=== PATIENT | female | born 1980 | race Caucasian/White ===

== ENCOUNTER 2020-04-03 07:57 | Outpatient (CLI) | payer BC, OTHER, SELFPAY ==
--- NOTE | 2020-04-03 08:02 | US_ITS ---
WS: [id number] ULTRASOUND THYROID TECHNIQUE: Ultrasound of the thyroid. CLINICAL INFORMATION: THYROMEGALY COMPARISON: None. FINDINGS: Thyroid: Right and left thyroid lobes are normal in size with diffuse heterogeneous echotexture. No d ominant thyroid nodules are present. Right thyroid lobe: 4.3 cm x 1.5 cm x 1.5 cm Left thyroid lobe: 4.2 cm x 1.5 cm x 1.3 cm. Isthmus: 0.6 mm. Cervical lymphadenopathy: None. US/US thyroid [id number] IMPRESSION: 1. Thyroid gland is normal in size. 2. No significant nodules. 3. Heterogeneous thyroid echotexture can be seen with goiter or thyroiditis. R ecommend correlation with thyroid function studies.
== END 2020-04-03 07:58 | disposition home or self-care (01) ==
PROVIDERS: PCP Nurse Practitioner; Visit Provider Family Medicine
DX: E01.0 Iodine-deficiency related diffuse (endemic) goiter (principal)
CPT/HCPCS: 76536

== ENCOUNTER 2020-05-09 15:22 | Outpatient (CLI) | payer BC, OTHER, SELFPAY ==
--- NOTE | 2020-05-09 15:28 | MM_ITS ---
WS: [id number] SCREENING DIGITAL MAMMOGRAM WITH CAD HISTORY: SCREENING COMPARISON: 12/25/2013 and 05/24/2013 LEFT mammogram. Bilateral CC and MLO views submitted. Computer aided detection analyzed. Breast composition: There are scattered areas of fibroglandular density. Well-circumscribed mass LEFT breast at 3:00 at a middle depth measures 14 mm. This mass has decreased in size since the prior renee dy. There is an additional 7 mm nodule at a middle depth near 6:00 which is also slightly decreased. There is a 6 mm nodule 6:00 axis of the RIGHT breast which has not been imaged in the past. RIGHT breast: Spot compression views (CC and MLO). True ML. Ultrasound to follow if abnormality persi sts. MM/[place] [id number] IMPRESSION: BI-RADS: 0-Incomplete: Need additional imaging evaluation FOLLOW UP: Need Additional Imaging
== END 2020-05-09 15:23 | disposition home or self-care (01) ==
LOC: RADSHAW 15:27
PROVIDERS: PCP Nurse Practitioner; Visit Provider Family Medicine
DX: Z12.31 Encounter for screening mammogram for malignant neoplasm of breast (principal)
CPT/HCPCS: 77067

== ENCOUNTER 2020-05-13 11:34 | Outpatient (CLI) | payer BC, OTHER, SELFPAY ==
--- NOTE | 2020-05-13 11:40 | US_ITS ---
WS: [id number] RIGHT DIGITAL MAMMOGRAPHY WITH CAD CLINICAL INFORMATION: RT BREAST NODULE COMPARISON: May 09, 2020 TECHNIQUE: 3 views of the right breast were obtained. FINDINGS: Scattered fibroglandular densities of the right breast. Stable 6 mm nodule right breast 6:00 position . Ultrasound is pending. ULTRASOUND BREAST RIGHT TECHNIQUE: Ultrasound right breast focused area of concern. CLINICAL INFORMATION: RT BREAST NODULE COMPARISON: None. FINDINGS: Ultrasound breast right-6 clock and 12:00 position. A few tiny cysts are visualized at the 6 clock po sition measuring 2-3 mm. At the 12:00 position is a larger simple appearing cyst measuring 9.4 x 6.5 mm. Findings are benign. US/US breast RT limited* [id number] IMPRESSION: BI-RADS: 2-Benign FOLLOW UP: 1 Year Follow-up Recommend return to annual screening mammography.
== END 2020-05-13 11:35 | disposition home or self-care (01) ==
LOC: RADSHAW 11:37
PROVIDERS: PCP Family Medicine; Visit Provider Family Medicine
DX: N63.10 Unspecified lump in the right breast, unspecified quadrant (principal)
CPT/HCPCS: 76642; 77065

== ENCOUNTER 2021-04-22 11:04 | Outpatient (CLI) | payer OTHER, SELFPAY ==
--- NOTE | 2021-04-22 11:10 | XR_ITS ---
WS: [id number] Left shoulder, 3 views, 04/22/2021 Clinical Data: PAIN IN LEFT SHOULDER Comparison: None. Findings: No fractures or dislocations are seen. The AC joint is normal. The adjacent left clavicle, left scapu la and ribs are normal. The soft tissues are unremarkable. XR/XR shoulder LT min 2V* [id number] Impression: Negative left shoulder.
== END 2021-04-22 11:05 | disposition home or self-care (01) ==
PROVIDERS: PCP Family Medicine; Visit Provider Nurse Practitioner Family
DX: M25.512 Pain in left shoulder (principal); M75.42 Impingement syndrome of left shoulder
CPT/HCPCS: 73030

== ENCOUNTER 2021-08-19 09:06 | Outpatient (CLI) | payer OTHER, SELFPAY ==
--- NOTE | 2021-08-19 09:13 | MM_ITS ---
WS: [id number] BILATERAL SCREENING DIGITAL MAMMOGRAM WITH CAD HISTORY: SCREENING COMPARISON: 05/13/2020, 05/09/2020, 05/24/2013 Bilateral CC and MLO views submitted. Computer aided detection analyzed. Breast composition: There are scattered areas of fibroglandular density. No suspicious masses, microc alcifications or architectural distortion. Gently lobulated 15 mm mass in the LEFT breast near 2:00 h as been stable over multiple prior examinations. There is an additional nodule central to the LEFT ni pple. Both of these nodules demonstrate long-term stability. MM/[place] [id number] IMPRESSION: BI-RADS: 2-Benign FOLLOW UP: 1 Year Follow-up
== END 2021-08-19 09:07 | disposition home or self-care (01) ==
PROVIDERS: PCP Family Medicine; Visit Provider Family Medicine
DX: Z12.31 Encounter for screening mammogram for malignant neoplasm of breast (principal)
CPT/HCPCS: 77067

== ENCOUNTER 2021-09-10 16:22 | Outpatient (CLI) | payer OTHER, SELFPAY ==
--- NOTE | 2021-09-10 16:33 | MR_ITS ---
WS: [id number] MRI LEFT SHOULDER HISTORY: PAIN IN LEFT SHOULDER COMPARISON: Radiographs 04/22/2021 TECHNIQUE: Multiplanar sequences of the shoulder joint are submitted. Normal AC joint. No marrow edema or significant osteophytosis. Very minimal downsloping of the acromi on and subacromial narrowing. No significant subacromial or subdeltoid bursal fluid. No os acromion. Biceps tendon is in normal position. Very mild narrowing of the glenohumeral joint. Small subchondral cystic change along the posterior la teral humeral head. No muscle atrophy or edema. No rotator cuff tears or significant tendinopathy. Th ere is very minimal increased signal within the anterior supraspinatus tendon. No joint effusion. No labral tear is identified. There is a small amount of increased T2 signal in the superior labrum but cannot confirm tear. MR/MR shoulder LT wo con* [id number] IMPRESSION: 1. Mild fraying of the distal supraspinatus tendon but no tear. 2. Normal AC joint. 3. Mild intrasubstance degeneration in the superior labrum but no tear.
== END 2021-09-10 16:23 | disposition home or self-care (01) ==
LOC: RADSHAW 16:26
PROVIDERS: PCP Family Medicine; Visit Provider Nurse Practitioner Family
DX: M25.512 Pain in left shoulder (principal)
CPT/HCPCS: 73221

== ENCOUNTER → 2021-12-11 11:50 | Outpatient (BNVA) | payer OTHER, SELFPAY | PROVIDERS: PCP Family Medicine; Referring Provider Family Medicine; Visit Provider Internal Medicine | DX: E03.9 Hypothyroidism, unspecified (principal); Z13.1 Encounter for screening for diabetes mellitus; Z13.220 Encounter for screening for lipoid disorders | CPT/HCPCS: 80061; 83036; 86376; 86800 ==

== ENCOUNTER 2022-02-09 11:56 | Outpatient (CLI) | payer OTHER, SELFPAY ==
[2022-02-09 13:15] LABS: Free T4 Free Thyroxine 1.35 ng/dL (0.82-1.77); Thyroid Stimulating Hormone 1.86 uIU/mL (0.27-4.20)
== END 2022-02-09 11:57 | disposition home or self-care (01) ==
LOC: LAB 11:58
PROVIDERS: PCP Family Medicine; Visit Provider Internal Medicine
DX: E03.9 Hypothyroidism, unspecified (principal); Z13.1 Encounter for screening for diabetes mellitus; Z13.220 Encounter for screening for lipoid disorders
CPT/HCPCS: 84439; 84443

== ENCOUNTER 2022-05-06 08:45 | Outpatient (CLI) | payer OTHER, SELFPAY ==
[2022-05-06 09:45] LABS: Free T4 Free Thyroxine 1.39 ng/dL (0.82-1.77); Thyroid Stimulating Hormone 2.16 uIU/mL (0.27-4.20)
== END 2022-05-06 08:46 | disposition home or self-care (01) ==
LOC: LAB 08:48
PROVIDERS: PCP Family Medicine; Visit Provider Internal Medicine
DX: E03.9 Hypothyroidism, unspecified (principal)
CPT/HCPCS: 36415; 84439; 84443

== ENCOUNTER 2022-08-12 08:17 | Outpatient (CLI) | payer OTHER, SELFPAY ==
[2022-08-12 09:25] LABS: Free T4 Free Thyroxine 1.34 ng/dL (0.82-1.77); Thyroid Stimulating Hormone 0.71 uIU/mL (0.27-4.20)
== END 2022-08-12 08:18 | disposition home or self-care (01) ==
LOC: LAB 08:24
PROVIDERS: PCP Family Medicine; Visit Provider Internal Medicine
DX: E03.9 Hypothyroidism, unspecified (principal)
CPT/HCPCS: 36415; 84439; 84443

== ENCOUNTER 2022-09-07 08:49 | Outpatient (CLI) | payer OTHER, SELFPAY ==
--- NOTE | 2022-09-07 08:59 | MM_ITS ---
WS: [id number] BILATERAL SCREENING DIGITAL TOMOSYNTHESIS MAMMOGRAM WITH CAD HISTORY: SCREENING COMPARISON: 08/19/2021, 05/09/2020 Bilateral CC and MLO views with tomosynthesis and synthetic mammography submitted. Computer aided det ection analyzed. Breast composition: There are scattered areas of fibroglandular density. No suspicious masses, microc alcifications or architectural distortion. 2 stable masses in the LEFT breast. The largest near 2-3 o 'clock at a middle depth measures 14 x 10 mm. There is a smaller nodule measuring 0.5 cm central to t he nipple, 6:00. MM/[place] [id number] IMPRESSION: BI-RADS: 2-Benign FOLLOW UP: 1 Year Follow-up
== END 2022-09-07 08:50 | disposition home or self-care (01) ==
PROVIDERS: PCP Family Medicine; Visit Provider Nurse Practitioner Family
DX: Z12.31 Encounter for screening mammogram for malignant neoplasm of breast (principal)
CPT/HCPCS: 77063; 77067

== ENCOUNTER 2022-09-07 08:50 | Outpatient (CLI) | payer OTHER, SELFPAY ==
--- NOTE | 2022-09-07 09:15 | US_ITS ---
WS: [id number] THYROID ULTRASOUND HISTORY: Dysphagia COMPARISON: 04/03/2020 Right lobe: 1.1 cm x 1.2 cm x 4.1 cm (w x ap x l). Volume: 2.7 cm3. Normal size gland with mild coarsened echotexture throughout. There is no mass or nodule. No increase d vascularity. Left lobe: 1.2 cm x 1.3 cm x 3.3 cm (w x ap x l). Volume: 2.8 cm3. Normal size gland with mild heterogeneity. No increased vascularity or mass. Isthmus: 0.3 cm. Small bilateral cervical chain lymph nodes. US/US thyroid [id number] IMPRESSION: 1. Normal size thyroid with no nodule or mass. 2. Mild heterogeneity is probably due to prior episodes of thyroiditis with he aling.
== END 2022-09-07 08:51 | disposition home or self-care (01) ==
PROVIDERS: PCP Family Medicine; Visit Provider Internal Medicine
DX: R13.10 Dysphagia, unspecified (principal)
CPT/HCPCS: 76536

== ENCOUNTER 2022-12-08 14:53 | Outpatient (CLI) | payer OTHER, SELFPAY ==
[2022-12-08 15:43] LABS: Free T4 Free Thyroxine 1.21 ng/dL (0.82-1.77); Thyroid Stimulating Hormone 1.02 uIU/mL (0.27-4.20)
== END 2022-12-08 14:54 | disposition home or self-care (01) ==
LOC: LAB 14:58
PROVIDERS: PCP Family Medicine; Visit Provider Internal Medicine
DX: E03.9 Hypothyroidism, unspecified (principal)
CPT/HCPCS: 84439; 84443

== ENCOUNTER 2023-03-17 10:51 | Outpatient (CLI) | payer OTHER, SELFPAY ==
[2023-03-17 12:03] LABS: Free T4 Free Thyroxine 1.42 ng/dL (0.82-1.77); Thyroid Stimulating Hormone 1.07 uIU/mL (0.27-4.20)
== END 2023-03-17 10:52 | disposition home or self-care (01) ==
LOC: LAB 10:52
PROVIDERS: PCP Family Medicine; Visit Provider Internal Medicine
DX: R68.89 Other general symptoms and signs (principal); E03.9 Hypothyroidism, unspecified; E66.3 Overweight; E78.5 Hyperlipidemia, unspecified; G47.00 Insomnia, unspecified
CPT/HCPCS: 36415; 84439; 84443

== ENCOUNTER 2023-08-21 09:38 | Outpatient (CLI) | payer OTHER, SELFPAY ==
[2023-08-21 09:52] LABS: Basophils # 0.1 10^3/uL (0.0-0.1); Basophils % 0.7 %; Eosinophils # 0.2 10^3/uL (0.0-0.8); Eosinophils % 2.2 %; Hematocrit 43.1 % (36-47); Lymphocytes # 2.6 10^3/uL (0.8-4.8); Lymphocytes % 35.9 %; Mean Corpuscular HGB Conc 32.9 g/dL (30-55); Mean Corpuscular Hemoglobin 29.1 pg (27-33); Mean Corpuscular Volume 88.3 fl (85-98); Mean Platelet Volume 9.5 fL (7.4-10.4); Monocytes # 0.6 10^3/uL (0.2-0.9); Monocytes % 8.5 %; Neutrophils # 3.84 10^3/uL (1.8-7.7); Neutrophils % 52.6 %; Nucleated Red Blood Cells % 0 %; Platelet Count 267 10^3/cmm (157-399); Red Blood Count 4.88 10^6/uL (3.85-5.65); Red Cell Distribution Width 13.1 % (12.1-15.1)
[2023-08-21 10:12] LABS: Estmated Average Glucose 97
[2023-08-21 10:13] LABS: Creatinine Urine, Random 186 mg/dL (28-217); Microalbum Creatinine Ratio Ur 5 mg/dL (0-20); Microalbumin Random Urine 1 ug/dL (0-20)
[2023-08-21 10:31] LABS: 25 Hydroxy Vitamin D 29 ng/mL (30-100); Alanine Aminotransferase 16 U/L (0-33); Albumin Level 4.1 g/dL (3.5-5.2); Alkaline Phosphatase 59 U/L (35-105); Anion Gap 13.9 (5-19); Aspartate Amino Transferase 14 U/L (0-32); Blood Urea Nitrogen 19 mg/dL (6-20); Calcium 8.9 mg/dL (8.5-10.5); Carbon Dioxide 20 mmol/L (22-29); Chloride 111 mmol/L (98-107); Chol HDL Ratio 3.57 mg/dL (0.0-4.40); Cholesterol 239 mg/dL (0-200); Globulin 3.2 g/dL (1.3-4.6); Glucose 89 mg/dL (65-115); HDL Cholesterol 67 mg/dL (60-100); Iron 77 ug/dL (37-145); LDL Cholesterol Calculated 158 mg/dL (50-129); LDL HDL Ratio 2.36 RATIO (0.00-3.22); Osmolality Calculated 294 mOsm/kg (285-295); Potassium 3.9 mmol/L (3.5-5.1); Sodium 141 mmol/L (136-145); Thyroid Stimulating Hormone 0.94 uIU/mL (0.27-4.20); Total Bilirubin 0.5 mg/dL (0.15-1.2); Total Protein 7.3 g/dL (6.6-8.7); Triglycerides 70 mg/dL (0-150); Vitamin B12 381 pg/mL (232-1245)
[2023-08-21 10:59] LABS: Free T4 Free Thyroxine 1.17 ng/dL (0.82-1.77)
== END 2023-08-21 09:39 | disposition home or self-care (01) ==
PROVIDERS: PCP Family Medicine; Visit Provider Internal Medicine
DX: E03.9 Hypothyroidism, unspecified (principal); E78.5 Hyperlipidemia, unspecified; L65.9 Nonscarring hair loss, unspecified; Z13.220 Encounter for screening for lipoid disorders; Z13.1 Encounter for screening for diabetes mellitus
CPT/HCPCS: 80053; 80061; 82044; 82306; 82607; 83036; 83540; 84439; 84443; 85025

== ENCOUNTER → 2023-08-30 13:16 | Outpatient (BNVA) | payer OTHER, SELFPAY | PROVIDERS: PCP Family Medicine; Visit Provider Podiatrist Foot & Ankle Surgery | DX: M20.12 Hallux valgus (acquired), left foot; M20.11 Hallux valgus (acquired), right foot; M21.6X1 Other acquired deformities of right foot; M21.6X2 Other acquired deformities of left foot | CPT/HCPCS: 73630 ==

== ENCOUNTER 2024-04-07 11:05 | Outpatient (CLI) | payer OTHER, SELFPAY ==
[2024-04-07 11:54] LABS: Anion Gap 9.1 (5-19); Blood Urea Nitrogen 12 mg/dL (6-20); Carbon Dioxide 30 mmol/L (22-29); Chloride 101 mmol/L (98-107); Glomerular Filtration Rate 90.9 mL/min (90-130); Glucose 81 mg/dL (65-115); Osmolality Calculated 281 mOsm/kg (285-295); Potassium 4.1 mmol/L (3.5-5.1); Sodium 136 mmol/L (136-145)
[2024-04-07 12:00] LABS: Free T4 Free Thyroxine 1.14 ng/dL (0.82-1.77); Thyroid Stimulating Hormone 2.66 uIU/mL (0.27-4.20)
[2024-04-07 12:10] LABS: 25 Hydroxy Vitamin D 42 ng/mL (30-100)
== END 2024-04-07 11:06 | disposition home or self-care (01) ==
LOC: LAB 11:06
PROVIDERS: PCP Family Medicine; Visit Provider Internal Medicine
DX: E03.9 Hypothyroidism, unspecified (principal); E78.5 Hyperlipidemia, unspecified; N17.9 Acute kidney failure, unspecified
CPT/HCPCS: 80048; 82306; 84439; 84443

== ENCOUNTER 2024-08-07 08:27 | Outpatient (CLI) | payer OTHER, SELFPAY ==
[2024-08-07 09:08] LABS: Free T4 Free Thyroxine 1.18 ng/dL (0.82-1.77); Thyroid Stimulating Hormone 1.36 uIU/mL (0.27-4.20)
== END 2024-08-07 08:28 | disposition home or self-care (01) ==
LOC: LAB 08:29
PROVIDERS: PCP Family Medicine; Visit Provider Internal Medicine
DX: E03.9 Hypothyroidism, unspecified (principal)
CPT/HCPCS: 36415; 84439; 84443

== ENCOUNTER 2025-02-05 08:44 | Outpatient (CLI) | payer OTHER, SELFPAY ==
--- NOTE | 2025-02-05 08:56 | XRR_ITS ---
PROCEDURE INFORMATION: Exam: XR Cervical Spine Exam date and time: 02/05/2025 9:01 AM Age: 44 years old Clinical indication: Pain; Cervicalgia; Additional info: Cervicalgia/pain in L shoulder TECHNIQUE: Imaging protocol: Radiologic exam of the cervical spine. Views: 2 or 3 views. COMPARISON: MR shoulder LT wo con* [id number] 09/10/2021 4:41 PM FINDINGS: Bones/joints: Normal. No acute fracture. Normal alignment. Soft tissues: Unremarkable. XR/XR cervical spine 3V* [id number] IMPRESSION: No acute findings.
[2025-02-05 11:30] LABS: Free T4 Free Thyroxine 1.21 ng/dL (0.82-1.77); Thyroid Stimulating Hormone 1.48 uIU/mL (0.27-4.20)
== END 2025-02-05 08:45 | disposition home or self-care (01) ==
PROVIDERS: Internal Medicine; PCP Family Medicine; Visit Provider Nurse Practitioner Family
DX: M54.2 Cervicalgia (principal); M25.512 Pain in left shoulder; E03.9 Hypothyroidism, unspecified
CPT/HCPCS: 36415; 72040; 84439; 84443

== ENCOUNTER 2025-04-12 10:40 | Outpatient (CLI) | payer OTHER, SELFPAY ==
[2025-04-12 12:22] LABS: Alanine Aminotransferase 26 U/L (0-33); Albumin Level 4.4 g/dL (3.5-5.2); Alkaline Phosphatase 68 U/L (35-105); Chloride 104 mmol/L (98-107); Cholesterol 247 mg/dL (0-200); HDL Cholesterol 76 mg/dL (60-100); Potassium 4.2 mmol/L (3.5-5.1); Sodium 140 mmol/L (136-145)
[2025-04-12 13:20] LABS: Anion Gap 15.2 (5-19); Aspartate Amino Transferase 19 U/L (0-32); Blood Urea Nitrogen 14 mg/dL (6-20); Calcium 9.3 mg/dL (8.5-10.5); Carbon Dioxide 25 mmol/L (22-29); Follicle Stimulating Hormone 44.1 mIU/mL; Globulin 3.1 g/dL (1.3-4.6); Glucose 82 mg/dL (65-115); Osmolality Calculated 290 mOsm/kg (285-295); Thyroid Stimulating Hormone 1.03 uIU/mL (0.27-4.20); Total Protein 7.5 g/dL (6.6-8.7); Triglycerides 68 mg/dL (0-150)
[2025-04-12 13:50] LABS: Free T4 Free Thyroxine 1.19 ng/dL (0.82-1.77)
== END 2025-04-12 10:41 | disposition home or self-care (01) ==
LOC: LAB 10:46
PROVIDERS: PCP Family Medicine; Visit Provider Internal Medicine
DX: E03.9 Hypothyroidism, unspecified (principal); E78.5 Hyperlipidemia, unspecified; G47.00 Insomnia, unspecified; L65.9 Nonscarring hair loss, unspecified
CPT/HCPCS: 36415; 80053; 80061; 82306; 82670; 83001; 84439; 84443